=== PATIENT | female | born 1970 | race Caucasian/White ===

== ENCOUNTER → 2018-06-25 | Outpatient (CLI) | payer BC | END | disposition home or self-care (01) | LOC: CFH 08:07 | PROVIDERS: ATTEND Psychiatry & Neurology Neurology | DX: M50.323 Other cervical disc degeneration at C6-C7 level (principal); M48.02 Spinal stenosis, cervical region; M50.221 Other cervical disc displacement at C4-C5 level; M25.78 Osteophyte, vertebrae | CPT/HCPCS: 72141 ==